=== PATIENT | female | born 1960 | race African-American/Black ===

== ENCOUNTER 2019-10-14 22:56 | Observation (INO) ==
[2019-10-14] MEDS ORDERED: ASPIRIN PO ONE (23:19)
--- NOTE | 2019-10-14 23:26 | EKG Report ---
Test Performed on : 10/14/2019 11:05:11 PM Test Reason : CP Blood Pressure : / mmHG Vent. Rate : 090 BPM Atrial Rate : 090 BPM P-R Int : 140 ms QRS Dur : 088 ms QT Int : 360 ms P-R-T Axes : 060 -02 135 degrees QTc Int : 440 ms Normal sinus rhythm. Possible Left atrial enlargement Left ventricular hypertrophy ST & T wave abnormality, consider inferior ischemia Abnormal ECG When compared with ECG of 08-APR-2017 19:56, Nonspecific T wave abnormality now evident in Inferior leads T wave inversion now evident in Lateral leads Unconfirmed Result
--- NOTE | 2019-10-14 23:27 | PROVIDER DOCUMENTATION ---
HPI-Chest Pain - General Chief Complaint: Chest Pain Stated Complaint: SOB/CHEST PAINS Time Seen by Provider: 10/14/19 23:03 Source: patient Allergies/Adverse Reactions: Patient Allergies Allergy/AdvReac Type Severity Reaction Status Date / Time No Known Allergies Allergy Verified 10/14/19 23:18 Home Medications: Home Medication List Medication Instructions Recorded Confirmed Last Taken Type Aspirin 81 mg PO DAILY 04/08/17 02/03/19 04/08/17 History LISINOpril [Prinivil] 20 mg PO DAILY #30 tablet 04/08/17 02/03/19 Unknown Rx Cyclobenzaprine [Flexeril] 10 mg PO Q8H PRN #1 tab 02/03/19 Unknown Rx Metformin [Glucophage] 500 mg PO BID CC 02/03/19 02/03/19 Unknown History Naproxen Sodium [Anaprox Ds] 550 mg PO Q12H PRN #1 tab 02/03/19 Unknown Rx - History of Present Illness-CP Nature of Presenting Problem: pt 59 yo AAF w/ PMH including DM2 and HTN , and obesity, smoker who present with sternal CP described as pressure like pain with worsening LE edema and BEE, pt reports nausea and weakness with sob during intermittent episodes which are exacerbated with exertion. Location: reports: substernal Chest Pain Radiation: reports: no radiation Quality of Pain: reports: pressure, tightness, other (worse with palpation) Severity in ED: moderate Onset/Duration: 24 hours ago Timing: still present, intermittent Context/Activities at Onset: reports: light activity Modifying Factors: improves with: other (worse with movment) Associated Symptoms: reports: diaphoresis, fatigue, nausea, shortness of breath Nitro Today/Relief: no nitro taken today Aspirin Treatment Today: provided by ED Prior Chest Pain/Cardiac Workup: reports: no prior chest pain Similar Symptoms Previously?: No Recently Seen Here or By Another Healthcare Provider: No Review of Systems - Adult - REVIEW OF SYSTEMS - ADULT Constitutional: reports: see HPI, denny Eyes: reports: no symptoms reported Ears, Nose, Mouth & Throat: reports: no symptoms reported Cardiovascular: reports: see HPI Respiratory: reports: no symptoms reported Gastrointestinal: reports: no symptoms reported Genitourinary: reports: no symptoms reported Musculoskeletal: reports: no symptoms reported Integumentary: reports: no symptoms reported Neurological: reports: no symptoms reported Psychiatric: reports: no symptoms reported Endocrine: reports: no symptoms reported Hematologic/Lymphatic: reports: no symptoms reported Allergic/Immunologic: reports: no symptoms reported All Other Systems: Reviewed and Negative Past History - Adult - PAST MEDICAL HISTORY-ADULT Review of Records: reports: Old Records Reviewed, Nursing Assessment Review, Medications Reviewed Major Childhood Illnesses: reports: denies history Cardiovascular: reports: HTN Respiratory: reports: denies history Gastrointestinal: reports: denies history Obstetrical/Gynecological: reports: denies history Genitourinary: reports: denies history Musculoskeletal: reports: denies history Neurological: reports: denies history Endocrine/Immune: reports: Diabetes Other Conditions: reports: denies history - PRIOR SURGERIES/PROCEDURES Surgical/Procedure History: reports: - IMMUNIZATION STATUS Childhood Immunizations: See Nurse Assessment Flu Vaccine: See Nurse Assessment - FAMILY HISTORY Family History: reviewed, not pertinent - SOCIAL HISTORY Smoking: greater than 1 pack/day Provider spent 3-5 mins advising pt. on dangers of tobacco.: Discussed manners to quit use, and f/u contacts for add'l counseling. Substance Use: none/never Alcohol Use Frequency: never Physical Exam-General - PHYSICAL EXAM-ADULT Initial Vital Signs Reviewed: Yes - CONSTITUTIONAL General Appearance: appears well, alert, no apparent distress - EYES Eyes: PERRL/EOMI, pink conjunctivae - HEAD, EARS, NOSE, MOUTH & THROAT HENMT: normocephalic/atraumatic, moist mucous membranes - NECK Neck: non-tender, full range of motion - RESPIRATORY Respiratory: chest non-tender, lungs clear, normal breath sounds - CARDIOVASCULAR Cardiovascular: normal peripheral pulses, regular rate, rhythm - GASTROINTESTINAL (ABDOMEN) Abdominal Exam: normal bowel sounds - LYMPHATIC Lymphatic: no adenopathy - MUSCULOSKELETAL Back Exam: normal inspection, no CVA tenderness Extremity: normal range of motion, non-tender, pedal edema - SKIN Integumentary: normal color, normal turgor, warm/dry - NEUROLOGIC Neurologic: corporate planning manager II-XII nml as tested, grossly normal - PSYCHIATRIC Psych/Mental Status: normal mood/affect, normal thought content, normal thought process, oriented x 3 - HEART Score HEART Score: History: Highly Suspicious HEART Score: ECG: Non-Specific Repolarization Disturbance/LBBB/PM HEART Score: Age: 45-65 Years HEART Score: Risk Factors for Atherosclerotic Disease: > or = 3 Risk Factors or History of Atherosclerotic Disease HEART Score: Troponin: < or = Normal Limit Total HEART Score:: 6 Progress - PLAN OF CARE/RESULTS Progress/Plan/Lab Results: Vital Signs - 8 hr 10/14/19 23:15 10/15/19 00:29 10/15/19 01:04 Pulse Rate 81 78 Respiratory Rate 23 22 Blood Pressure 188/103 203/111 187/75 O2 Sat by Pulse Oximetry 97 96 10/15/19 01:47 Pulse Rate 79 Respiratory Rate 22 Blood Pressure 168/115 O2 Sat by Pulse Oximetry 96 Laboratory Results - last 24 hr 10/14/19 10/14/19 10/14/19 23:30 23:30 23:30 WBC RBC Hgb Hct MCV MCH MCHC RDW Std Deviation Plt Count MPV Immature Gran % (Auto) Neut % (Auto) Lymph % (Auto) [place] % (Auto) Eos % (Auto) Baso % (Auto) Immature Gran # (Auto) Neut # (Auto) Lymph # (Auto) [place] # (Auto) Eos # (Auto) Baso # (Auto) D-Dimer, Quantitative 0.71 H Sodium Potassium Chloride Carbon Dioxide Anion Gap BUN Creatinine Estimated GFR/1.73 m2 BUN/Creatinine Ratio Glucose Calculated Osmolality Calcium Total Bilirubin AST ALT Alkaline Phosphatase Creatine Kinase 257 H Creatine Kinase Index 1.4 CK-MB (CK-2) 3.56 Troponin T 0.010 Uzg-[id number]-Xpbwnwlonxk Pept Total Protein Albumin Globulin Albumin/Globulin Ratio 10/14/19 10/14/19 10/14/19 23:30 23:30 23:30 WBC 7.29 RBC 4.96 Hgb 11.6 L Hct 35.5 L MCV 71.6 L MCH 23.4 L MCHC 32.7 L RDW Std Deviation 15.4 H Plt Count 302 MPV 10.1 Immature Gran % (Auto) 0.1 Neut % (Auto) 53.0 Lymph % (Auto) 24.7 [place] % (Auto) 11.9 H Eos % (Auto) 9.9 Baso % (Auto) 0.4 Immature Gran # (Auto) 0.01 Neut # (Auto) 3.86 Lymph # (Auto) 1.80 [place] # (Auto) 0.87 H Eos # (Auto) 0.72 H Baso # (Auto) 0.03 D-Dimer, Quantitative Sodium 141 Potassium 4.0 Chloride 105 Carbon Dioxide 23 L Anion Gap 13 BUN 12 Creatinine 0.8 Estimated GFR/1.73 m2 > 60 BUN/Creatinine Ratio 15 Glucose 184 H Calculated Osmolality 286 Calcium 8.9 Total Bilirubin 0.20 AST 21 ALT 18 Alkaline Phosphatase 87 Creatine Kinase Creatine Kinase Index CK-MB (CK-2) Troponin T [id number] Pept 123 Total Protein 7.5 Albumin 3.8 Globulin 4.0 Albumin/Globulin Ratio 1.0 Orders Category Date Time Status Admit - [facility] Routine AdmDCTranf 10/15/19 01:17 Active Activity - Strict Bedrest ORDERED Care 10/15/19 01:17 Active Cardiac Monitoring DIRECTED Care 10/14/19 23:06 Active Resuscitation Status Routine Care 10/15/19 01:17 Ordered Saline Loc NOW Care 10/14/19 23:07 Active Vital Signs Order Q 4-HR ASSESS Care 10/15/19 01:17 Active Z-Document. for Tele Applied ORDERED Care 10/15/19 01:18 Active NPO Diet 10/15/19 01:19 Active CHEST-PORTABLE [RAD] Stat Exams 10/14/19 23:06 Taken CTA [CT ANGIOGRM PULMONARY ARTERIES] [CT] Stat Exams 10/15/19 00:18 Taken CBC WITH ELECTRONIC DIFF [HEME] Stat Lab 10/14/19 23:30 Completed CK PROFILE [SP CHEM] Q4H Lab 10/15/19 03:00 Ordered CK PROFILE [SP CHEM] Q4H Lab 10/15/19 07:00 Ordered CK PROFILE [SP CHEM] Q4H Lab 10/15/19 11:00 Ordered CK PROFILE [SP CHEM] Stat Lab 10/14/19 23:30 Completed CMP [COMPREHENSIVE METABOLIC PANEL] [CHEM] Stat Lab 10/14/19 23:30 Completed D-DIMER [COAG] Stat Lab 10/14/19 23:30 Completed PRO B-NATRIURETIC PEPTIDE Stat Lab 10/14/19 23:30 Completed TROPONIN T Q4H Lab 10/15/19 03:00 Ordered TROPONIN T Q4H Lab 10/15/19 07:00 Ordered TROPONIN T Q4H Lab 10/15/19 11:00 Ordered TROPONIN T Stat Lab 10/14/19 23:30 Completed Aspirin Med 10/14/19 23:19 Discontinued 325 mg PO NOW ONE Clonidine [Catapres] Med 10/15/19 00:18 Discontinued 0.2 mg PO NOW ONE Enoxaparin [Lovenox] Med 10/15/19 01:23 Discontinued 40 mg SUBQ NOW ONE Insulin Human Regular ([place] [Humulin R ([place])] Med 10/15/19 01:21 Discontinued See Protocol SUBQ NOW ONE Nitroglycerin Med 10/15/19 01:57 Discontinued 1 inch TOP NOW ONE Ondansetron [Zofran] Med 10/15/19 01:17 Active 4 mg IV Q4H PRN PRN Oxygen Device Routine Oth 10/15/19 01:19 Active Telemetry [OM.EQ] Routine Oth 10/15/19 01:17 Active EKG [EKG] Q4HR Ther 10/15/19 05:00 Ordered EKG [EKG] Q4HR Ther 10/15/19 09:00 Ordered EKG [EKG] Stat Ther 10/14/19 23:06 Draft Transfer/Admit Order [TRANSFER] Routine Transfer 10/15/19 01:22 Ordered discussed with patient lab results and informed her she would be admitted to hospital, pt verbalized understanding and agreed with POC. Result Diagrams: 10/14/19 23:30 10/14/19 23:30 - EKG 1 Time of EKG reading by physician:: 23:05 EKG Read and Signed by:: Holger Roger EKG Interpretation (*Must complete 3 of following elements*): Abnormal Rate: 90 Rhythm: NSR Page: normal QRS: normal ST Wave: non-specific ST changes Prior EKG Comparison: changes noted - CT/MRI 1 CT Study: Thorax CT Results: clear lungs, no PE - CONSULTS/PCP/HOSPITALIST Notification #1 *Consult/PCP/Hospitalist*: Dr. Gordon, hospitalist Time Discussed: 02:10 Consult Disposition: Admit - CHANGE OF SHIFT REPORT (ED Provider) 1 Report Given and Care Transferred to:: Dr roger Time of Transfer: 01:16 Items Pending: CT/MRI Results (awaiting CTA results) Departure - Departure Date of Disposition Decision: 10/14/19 Time of Disposition Decision: 02:14 DIAGNOSIS: Chest pain Qualifiers: Chest pain type: unspecified Qualified Code(s): R07.9 - Chest pain, unspecified Diabetes Qualifiers: Diabetes mellitus type: type 2 Diabetes mellitus termite renewal inspector insulin use: unspecified residential insulin use status Diabetes mellitus complication status: without complication Qualified Code(s): E11.9 - Type 2 diabetes mellitus without complications Disposition: ADMITTED INPATIENT 09 Certified Medical Emergency: Emergent Condition: Stable Referrals and Follow-Ups: None,PCP [Primary Care Provider] - - Critical Care Note This patient required my direct & personal management of CC.: No Attestation - Physician/ LIZ Attestation Patient care was provided by Advanced Practice Provider:: Yes Advanced Practice Provider:: Nigel Rabago Advanced Practice Provider documentation review:: The Mid-level provider documentation, treatment plan and medical decision making was reviewed by the physician who agrees with all treatment and medical decision making by the MLP. The physician spent face to face time with patient:: No Advanced Practice Provider documentation review:: Supervising physician onsite and consulted in the evaluation and care of this patient. The physician did not have a face to face encounter with the patient.
[2019-10-14 23:52] LABS: BASO# 0.03 X1000 (0.0-0.2); BASO% 0.4 % (0.0-0.8); EOS# 0.72 X1000 (0.0-0.7); EOS% 9.9 % (0.0-10.0); HEMATOCRIT 35.5 % (37.0-47.0); HEMOGLOBIN 11.6 g/dL (12.0-16.0); IMM GRAN# 0.01 X1000 (0.0-0.04); IMM GRAN% 0.1 % (0.0-0.5); LYMPH% 24.7 % (20.5-51.1); MCH 23.4 PG (27-31); MCHC 32.7 g/dL (33-37); MCV 71.6 FL (81-99); MONO# 0.87 X1000 (0.11-0.59); MONO% 11.9 % (1.7-9.3); MPV 10.1 FL (7.4-10.4); NEUT# 3.86 X1000 (1.4-6.5); PLT 302 X1000 (130-400); RBC 4.96 XMIL (4.2-5.4); RDW 15.4 % (11.5-14.5); WBC 7.29 X1000 (4.8-10.8)
[2019-10-15 00:11] LABS: AGAP 13; ALBUMIN 3.8 g/dL (3.5-5.0); ALKALINE PHOSPHATASE 87 U/L (32-104); BUN 12 mg/dL (8-22); CALCIUM 8.9 mg/dL (8.8-10.2); CHLORIDE 105 mmol/L (98-107); COSMO 286; CREATININE 0.8 mg/dL (0.5-0.9); ESTIMATED GFR > 60; GLUCOSE 184 mg/dL (70-104); GOT 21 U/L (10-30); GPT 18 U/L (10-36); SODIUM 141 mmol/L (136-145); TCO2 23 mmol/L (25-35); TOTAL PROTEIN 7.5 g/dL (6.3-8.3)
[2019-10-15] MEDS ORDERED: CATAPRES PO ONE (00:18)
[2019-10-15 00:28] LABS: CK INDEX 1.4 (0.0-2.5); CK-MB 3.56 ng/mL (0.0-5.0)
[2019-10-15] MEDS ORDERED: ZOFRAN IV PRN (01:17)
[2019-10-15] MEDS ORDERED: HUMULIN R (PARKWAY) SUBQ ONE (01:21)
[2019-10-15] MEDS ORDERED: LOVENOX SUBQ ONE (01:23)
[2019-10-15] MEDS ORDERED: NITROGLYCERIN TOP ONE (01:57)
[2019-10-15 03:54] LABS: CK INDEX 1.3 (0.0-2.5); CK-MB 3.11 ng/mL (0.0-5.0)
--- NOTE | 2019-10-15 07:29 | Diag Imaging Result Doc PS360 ---
EXAM: CHEST-PORTABLE 10/14/2019 HISTORY: CP TECHNIQUE: Erect AP portable at 2326 COMMENT: The heart size is slightly enlarged. There are no focal pulmonary opacities and considering differences in technique compared to 09/15/2013 there has been no significant change. IMPRESSION: Borderline cardiomegaly. Electronically signed by Maycol Fisher 10/15/2019 7:26 AM
[2019-10-15 07:58] LABS: CK INDEX 1.4 (0.0-2.5); CK-MB 2.82 ng/mL (0.0-5.0)
--- NOTE | 2019-10-15 08:32 | Diag Imaging Result Doc PS360 ---
EXAM: CT ANGIOGRM PULMONARY ARTERIES 10/15/2019 HISTORY: sob/cp TECHNIQUE: This exam was performed using automated exposure control, adjustment of mA or kV according to patient size, and/or use of iterative reconstruction technique. COMMENT: There are no previous studies. 3-D MIPS were performed. There are no filling defects in the pulmonary arteries. The aorta is not distended and there is no evidence of dissection. There is no evidence of significant adenopathy. The left ventricle is slightly enlarged. There is no significant adenopathy. There is some retained fluid in the esophagus proximally. There is retained solid and liquid gastric contents. There is some motion artifact. No evidence of acute pulmonary parenchymal disease is present. There are degenerative changes in the thoracic spine. IMPRESSION: No evidence of pulmonary embolus or other acute pulmonary disease. Questionable gastroesophageal reflux. Electronically signed by Maycol Fisher 10/15/2019 8:30 AM
--- NOTE | 2019-10-15 09:18 | EKG Report ---
Test Performed on : 10/15/2019 09:08:29 AM Test Reason : pain Blood Pressure : / mmHG Vent. Rate : 063 BPM Atrial Rate : 063 BPM P-R Int : 140 ms QRS Dur : 090 ms QT Int : 462 ms P-R-T Axes : 069 014 079 degrees QTc Int : 472 ms Normal sinus rhythm. Septal infarct , age undetermined Abnormal ECG When compared with ECG of 14-OCT-2019 23:05, (Unconfirmed) Non-specific change in ST segment in Lateral leads Nonspecific T wave abnormality no longer evident in Inferior leads Confirmed by Will Anthony MD ([id number]) on 10/19/2019 1:48:21 AM
[2019-10-15] MEDS ORDERED: NORVASC PO SCH (11:15)
[2019-10-15 11:20] LABS: HEMOGLOBIN A1C 6.7 % (4.8-6.0)
--- NOTE | 2019-10-15 11:55 | HISTORY AND PHYSICAL ---
PRIMARY CARE PHYSICIAN: None. CHIEF COMPLAINT: Sternal chest pain with pressure, nonradiating, shortness of breath with exertion. HISTORY OF PRESENTING ILLNESS: This is a 59-year-old, -[place] female who presents to [facility] ER with complaints of sternal chest pain that she described as a pressure that was nonradiating. She also noted some shortness of breath with exertion. States that she has been diagnosed with hypertension and diabetes type 2 but has not been on medication for a long time. Does not follow up with a primary care physician. Does not control her diet. Continues to smoke a half a pack of cigarettes a day. When she arrived to the emergency room, she had a blood pressure of 188/103 that went up about an hour later to 203/111. She was given 1 inch of nitroglycerin topically, Lovenox 40 mg subcutaneously, Catapres 0.2 mg x1, and an aspirin 325 mg p.o. x1. Cardiac enzymes x3 sets have been negative. Her D-dimer was 0.71. We did a pulmonary arteriogram that showed no evidence of pulmonary emboli or other acute pulmonary disease. EKG on arrival showed normal sinus rhythm at 90. She is being admitted for further evaluation and treatment. PAST MEDICAL HISTORY: Diabetes type 2 and hypertension. PAST SURGICAL HISTORY: section, bilateral tubal ligation, and a left knee surgery. FAMILY HISTORY: Reviewed and noncontributory. SOCIAL HISTORY: She currently lives with family. Smokes a half a pack of cigarettes a day and has done so for 30+ years. Drinks alcohol occasionally and denies any illicit drug use. ALLERGIES: No known drug allergies. HOME MEDICATIONS: She is not taking any medications on a routine basis at this time. LABORATORY DATA: Showed a white blood cell count of 7.29, hemoglobin 11.6, hematocrit 35.5, platelets 302,000. D-dimer of 0.71. Sodium 141, potassium 4, chloride 105, CO2 of 23, BUN of 12, creatinine 0.8, glucose was 184. Cardiac enzymes x3 sets were negative. Chest x-ray showed borderline cardiomegaly. EKG showed normal sinus rhythm at 90. Pulmonary arteriogram showed no evidence of pulmonary embolus or other acute pulmonary disease, and questionable GERD. REVIEW OF SYSTEMS: She denied any fever, chills, blurred vision, dizziness. She denied any fever or chills. She was positive for some blurred vision, dizziness, headache at times, chest pain, shortness of breath with exertion. Denied any cough, abdominal pain, constipation, diarrhea, burning or hurting with urination, but she does note excessive thirst and frequent urination. She also notes some swelling to her bilateral lower extremities. PHYSICAL EXAMINATION: VITAL SIGNS: On arrival, she had a pulse of 81, respirations 23, blood pressure 188/103, saturating 97% on room air. About an hour later, her blood pressure went up to 203/111. Currently, she is at 156/96. GENERAL: This is a 59-year-old, -Taj[place] female who is lying in the bed and answers questions appropriately. HEENT: Normocephalic, atraumatic. Normal ENT inspection. Oropharynx and nares are clear. Eyes: Pupils are equal, round, and reactive to light and accommodation. Extraocular movements are intact. NECK: Normal inspection. Normal range of motion. LUNGS: Clear to auscultation bilaterally with equal lung expansion and chest wall movement. HEART: Regular rate and rhythm. No murmurs, rubs, or gallops. ABDOMEN: Soft, nontender, nondistended. Bowel sounds are present x4 quadrants. MUSCULOSKELETAL: She has 5/5 strength x4 extremities. She did have some minimal nonpitting edema to bilateral lower extremities. NEUROLOGICAL: The cranial nerves 2-12 appear grossly intact. ASSESSMENT: 1. Chest pain. 2. Elevated D-dimer. 3. Hypertension. 4. Diabetes type 2, uncontrolled with hyperglycemia. 5. Tobacco abuse. PLAN: She is being admitted to the medical unit. Placed on telemetry, O2 per protocol, diabetic diet. Will be n.p.o. after midnight for a myocardial perfusion scan. We will also check an echocardiogram. Place on pattern blood sugars with sliding scale insulin. We will check a hemoglobin A1c now. We will do a bilateral lower extremity venous Doppler due to the elevated D- dimer and some swelling to her bilateral lower extremities. I am going to start her on Norvasc 5 mg p.o. daily. She is going to need to start something for her diabetes but I am going to wait and see what her A1c is before doing that. She admits to being medically noncompliant. Does not follow up. Does not have any current medications. We discussed her health in general and the need to control her diet, have followup, and be placed on medications for her blood pressure and diabetes. She verbalized understanding. We also discussed smoking cessation and she also verbalized understanding. Further orders after seen by attending. Dictated by CHRIST Conrad for Christoph Gordon MD cc: CHRIST Conrad MD
--- NOTE | 2019-10-15 18:23 | PROGRESS NOTE ---
DATE: 10/15/2019 ADDENDUM: The patient came in for complaints of chest pain. Her physical exam is really unremarkable. She had uncontrolled hypertension, which was felt to likely be malignant, but she is noncompliant with her medications. She stopped seeing her physician for really unclear reasons and then just never came back for treatment. She is diabetic. She is hypertensive, so in any case, we will admit her for treatment. I am going to put her on lisinopril instead of Norvasc just because she is diabetic, although, her diabetes is actually pretty well controlled. Her A1c is only 6.7. We will put her back on metformin. We will see how she does. DISPOSITION: Pending clinical status. If her testing is negative, likely home tomorrow. cc: Christoph Gordon MD
[2019-10-16 06:30] LABS: AGAP 11; BUN 11 mg/dL (8-22); CALCIUM 8.7 mg/dL (8.8-10.2); CHLORIDE 104 mmol/L (98-107); COSMO 278; CREATININE 0.7 mg/dL (0.5-0.9); ESTIMATED GFR > 60; GLUCOSE 126 mg/dL (70-104); POTASSIUM 4.1 mmol/L (3.5-5.1); SODIUM 139 mmol/L (136-145); TCO2 25 mmol/L (25-35)
[2019-10-16 06:32] LABS: BASO# 0.03 X1000 (0.0-0.2); BASO% 0.5 % (0.0-0.8); EOS# 0.74 X1000 (0.0-0.7); EOS% 12.9 % (0.0-10.0); HEMATOCRIT 35.4 % (37.0-47.0); HEMOGLOBIN 11.5 g/dL (12.0-16.0); IMM GRAN# 0.01 X1000 (0.0-0.04); IMM GRAN% 0.2 % (0.0-0.5); LYMPH# 2.07 X1000 (1.2-3.4); LYMPH% 36.1 % (20.5-51.1); MCH 23.2 PG (27-31); MCHC 32.5 g/dL (33-37); MCV 71.5 FL (81-99); MONO# 0.74 X1000 (0.11-0.59); MONO% 12.9 % (1.7-9.3); MPV 10.4 FL (7.4-10.4); NEUT# 2.15 X1000 (1.4-6.5); NEUT% 37.4 % (42.2-75.2); PLT 325 X1000 (130-400); RBC 4.95 XMIL (4.2-5.4); RDW 15.3 % (11.5-14.5); WBC 5.74 X1000 (4.8-10.8)
[2019-10-16] MEDS: GLUCOPHAGE PO SCH ×2 (08:58→16:34)
[2019-10-16] MEDS ORDERED: PRINIVIL PO SCH (09:00)
--- NOTE | 2019-10-16 10:38 | EKG Report ---
Test Performed on : 10/16/2019 10:33:37 AM Test Reason : STRESS TEST Blood Pressure : / mmHG Vent. Rate : 064 BPM Atrial Rate : 064 BPM P-R Int : 142 ms QRS Dur : 088 ms QT Int : 442 ms P-R-T Axes : 052 007 086 degrees QTc Int : 455 ms Normal sinus rhythm. Normal ECG When compared with ECG of 15-OCT-2019 09:08, (Unconfirmed) Criteria for Septal infarct are no longer present Confirmed by Will Anthony MD ([id number]) on 10/19/2019 1:46:14 AM
--- NOTE | 2019-10-16 10:40 | Vascular Study Report ---
EXAM: Venous U/S Bilateral Legs HISTORY: Elevated ddimer TECHNIQUE: Campbell scale, color Doppler, and duplex evaluation was performed. Standard protocol. COMPARISON: None. FINDINGS: Large body habitus. The deep veins of the bilateral lower extremities demonstrate appropriate compressibility and augmentation. No intraluminal thrombus is visualized. There is no evidence for DVT. The superficial veins appear patent. IMPRESSION: No evidence for deep venous thrombosis bilateral lower extremities. Electronically signed by Nan Lloyd 10/16/2019 10:37 AM
--- NOTE | 2019-10-16 13:05 | PROGRESS NOTE ---
DATE: 10/16/2019 INDICATIONS: Chest pain, uncontrolled hypertension. A 59-year-old female, noncompliant with her medications. SUBJECTIVE: Her baseline EKG showed nonspecific ST changes. She had some frequent ectopic beats, but other than that was unremarkable. Total of 0.4 mg Lexiscan regadenoson was infused, pushed and the patient did not develop any chest tightness or chest pressure. I do not think she had any significant ST changes. She did have some occasional ventricular ectopy. Peak blood pressure 184/95, peak heart rate of 93. I think there was not any significant ST changes from baseline. Test was felt to be clinically negative, electrically negative. cc: Christoph Gordon MD
[2019-10-16] MEDS ORDERED: LEXISCAN ONE (13:38)
--- NOTE | 2019-10-16 16:02 | Diag Imaging Result Document ---
PROCEDURE NAME: MYOCARDIAL PERF SCAN, STR/REST - 10/16/2019 STUDY: Rest/stress Lexiscan myocardial perfusion stress test. INDICATION: A 59-year-old female. Patient of Dr. Gordon. Chest pain. DESCRIPTION: The patient came into the nuclear lab and received a resting injection of technetium 99 sestamibi 16.2 mCi. Multiple tomographic views of the cardiac structures were obtained at rest. Subsequently, the patient underwent infusion of Lexiscan 0.4 mg under the supervision of Dr. Gordon. At peak infusion she was injected with technetium 99 sestamibi 45.9 mCi. Multiple tomographic views of the cardiac structures were obtained following the completion of the protocol. SUMMARY OF THE ELECTROCARDIOGRAPH PORTION OF THE STUDY: Dr. Gordon already reported the ECG portion. SUMMARY OF THE MYOCARDIAL PERFUSION PORTION OF THE STUDY: Poststress tomographic views of the left ventricle showed normal homogeneous distribution of radiotracer throughout the entire left ventricular myocardium. There is no evidence of any postexercise defect. The rest images show normal perfusion. Polar plots reveal the same. No evidence of any inducible ischemia nor myocardial scar. Gated SPECT shows normal left ventricular systolic function. Ejection fraction of 67%. End-systolic volume 30 mL. No wall motion abnormality. Lung/heart ratio is normal at 0.38. TID is normal at 0.87. CONCLUSION: In summary, this study shows: 1. Normal poststress myocardial perfusion scan. There is no scintigraphic evidence of pharmacologically induced myocardial ischemia. 2. Normal left ventricular systolic function. Ejection fraction of 67%. Normal ventricular volumes. No wall motion abnormality. The study represents low risk for ischemic events. cc: MD Alina Dowd CRNP
[2019-10-16 16:32] VITALS: BP 156/89
--- NOTE | 2019-10-16 18:41 | ECHO REPORT ---
ORDER DATE: 10/16/2019 REQUESTING PROVIDER: Hospitalist service, [facility], [place], [facility]. INDICATION: Chest pain and hypertension. M-MODE MEASUREMENTS: Left ventricle end diastole: 4.8. Left ventricle end systole: 3.1. Posterior wall: 1.3. Interventricular septum: 1.3. Left atrium: 3.4. Aortic diameter: 3.0. SUMMARY OF 2-DIMENSIONAL IMAGIN. Left ventricular function is normal with ejection fraction of 56%. Ventricular chamber is generous in size. There is mild concentric LVH. 2. The aortic valve looks normal. Color flow mapping unremarkable. 3. Left atrium is normal. Color flow mapping unremarkable. 4. The pulmonic valve looks normal. Color flow mapping unremarkable. 5. The mitral valve is normal. Color flow mapping unremarkable. 6. Pulsed wave Doppler of mitral inflow is normal. 7. Tissue Doppler of septal and lateral mitral annulus averages 6.5 cm. 8. Pulmonary venous flow is normal. There is no diastolic dysfunction. 9. The tricuspid valve also looks grossly normal. Color flow mapping indicates minimal degree of regurgitation. 10.Continuous wave Doppler suggests a pulmonary pressure of 33 mmHg. 11.There is no pericardial effusion, no mass, and no thrombus. SUMMARY: This study shows 1. Normal left ventricular systolic function with ejection fraction of 56% and mild degree of concentric left ventricular hypertrophy. 2. No diastolic dysfunction. 3. Normal valvular structures. 4. Pulmonary pressure of 33 mmHg. Clinical correlation recommended. cc: MD Alina Dowd CRNP
== END 2019-10-16 19:21 | disposition home or self-care (01) ==
LOC: P.MEDSURG 22:56 → P.ED 22:56
PROVIDERS: ATTEND Internal Medicine